=== PATIENT | female | born 1975 | race Caucasian/White ===

== ENCOUNTER 2019-11-09 20:46 | Emergency (ER) | payer MEDICAID ==
[~2019-11-09] VITALS: Ht 147.3 cm; Wt 40.8 kg
[2019-11-09 21:08] VITALS: BP_SYST 128
--- NOTE | 2019-11-09 21:08 | NUR ---
Placed in room 6 . Placed on environmental monitoring specialist, blood pressure machine and pulse oximeter. To gown for exam. Side rails up.
--- NOTE | 2019-11-09 21:10 | NUR ---
Pt presents to ER with friend with c/o nausea, vomiting and dizziness. Pt states she has been nauseous and vomiting for 2 days. Pt states she has been sober for three days. 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 Pt states she has body aches and rates the pain 5/10. Upon inspection pt has a 1 cm sutured laceration with 3 stitches. Pt states she wants sutures to be assessed. Pt states stitches were put in approximately 3 weeks ago. Will continue to monitor.
--- NOTE | 2019-11-09 21:34 | NUR ---
ER Dr. Morataya at bedside examining patient.
[2019-11-09] MEDS ORDERED: NACL 0.9% 1,000 ML IV ONE (21:41)
[2019-11-09] MEDS ORDERED: cloNIDine HCL 0.1 MG TABLET PO ONE (21:45)
[2019-11-09] MEDS ORDERED: PANTOPRAZOLE SODIUM 40 MG/VIAL (PROTONIX) IVP ONE (21:45)
[2019-11-09] MEDS ORDERED: ONDANSETRON HCL 4 MG/2 ML VIAL IVP ONE (21:45)
[2019-11-09] MEDS ORDERED: ALPRAZolam 0.25 MG TABLET PO ONE (21:45)
--- NOTE | 2019-11-09 22:05 | NUR ---
Removed 3 sutures from right eyebrow. No bleeding noted. Pt tolerated well.
[2019-11-09 22:10] LABS: BASOPHILS # (AUTO) 0.1 K/uL (0.0-0.2); BASOPHILS % (AUTO) 0.6 % (0.0-2.0); EOSINOPHILS % (AUTO) 0.2 % (0.0-4.0); HEMATOCRIT 46.1 % (36-48); HEMOGLOBIN 16.2 g/dL (12.0-16.0); LYMPHOCYTES # (AUTO) 1.7 K/uL (1.0-5.5); LYMPHOCYTES % (AUTO) 20.6 % (20.5-51.5); MEAN CORPUSCULAR HEMOGLOBIN 32 pg (27-31); MEAN CORPUSCULAR HGB CONC 35 % (32-36); MEAN CORPUSCULAR VOLUME 91 fL (79.0-98.0); MONOCYTES # (AUTO) 0.4 K/uL (0.0-1.0); NEUTROPHILS % (AUTO) 73.6 % (40.0-70.0); PLATELET COUNT (AUTO) 361 K/uL (130-430); RED BLOOD CELL COUNT(AUTO) 5.08 MIL/uL (4.2-6.2); RED CELL DISTRIBUTION WIDTH 12.7 % (9.0-15.0); WHITE BLOOD COUNT (AUTO) 8.2 K/uL (4.8-10.8)
[2019-11-09 22:14] LABS: BILIRUBIN,URINE 1+ (NEGATIVE); BLOOD, URINE NEGATIVE (NEGATIVE); CLARITY/URINE CLOUDY (CLEAR); COLOR,URINE YELLOW (YELLOW); GLUCOSE,URINE NEGATIVE (NEGATIVE); KETONES,URINE TRACE (NEGATIVE); LEUKOCYTE ESTERASE ,URINE TRACE (NEGATIVE); NITRITE, URINE NEGATIVE (NEGATIVE); PROTEIN URINE TRACE (NEGATIVE)
[2019-11-09 22:23] LABS: RBC,URINE 0-3 /HPF (0-3)
[2019-11-09 22:24] LABS: BACTERIA,URINE MODERATE /HPF (None Seen)
[2019-11-09 22:25] LABS: CALCIUM 8.6 mg/dL (8.4-11.0); CREATININE 0.76 mg/dL (0.55-1.30); POTASSIUM 3.7 mmol/L (3.5-5.1)
[2019-11-09 22:28] LABS: CANNABINOID, URINE POSITIVE (NEG <=50); METHAMPHETAMINES SCREEN,URINE POSITIVE (NEG <=500); OPIATE, URINE POSITIVE (NEG <=100)
[2019-11-09 22:29] LABS: BARBITURATE, URINE NEGATIVE (NEG <=200); BENZODIAZEPINE, URINE POSITIVE (NEG <=150); COCAINE, URINE NEGATIVE (NEG <=150); PHENCYCLIDINE SCREEN,URINE NEGATIVE (NEG <=25); UR TRICYCLIC ANTIDEPRESSANTS NEGATIVE (NEG <=300); URINE AMPHETAMINE POSITIVE (NEG <=500); URINE METHADONE NEGATIVE (NEG <=200); URINE OXYCODONE SCREEN NEGATIVE (NEG <=100); URINE PROPOXYPHENE SCREEN NEGATIVE (NEG <=300)
[2019-11-09 22:30] LABS: ALBUMIN 4.4 g/dL (3.4-4.8); TOTAL BILIRUBIN 0.5 mg/dL (0.0-1.0)
--- NOTE | 2019-11-09 23:15 | NUR ---
Patient resting comfortably in bed. No acute distress, will continue to monitor.
[2019-11-10 00:13] VITALS: BP_SYST 121
--- NOTE | 2019-11-10 00:13 | NUR ---
Patient given written and verbal discharge instructions and verbalizes understanding. ER MD discussed with patient the results and treatment provided. Patient in stable condition. ID arm band removed. IV catheter removed intact and dressing applied, no active bleeding. Rx of Xanax, Clonidine, and Zofran given. Patient educated on pain management and to follow up with PMD. Pain Scale 0. Opportunity for questions provided and answered. Medication side effect fact sheet provided.
== END 2019-11-10 00:13 | disposition home or self-care (01) ==
LOC: SED 20:46
DX: F11.23 Opioid dependence with withdrawal (principal); F15.23 Other stimulant dependence with withdrawal; F17.200 Nicotine dependence, unspecified, uncomplicated; F10.239 Alcohol dependence with withdrawal, unspecified; R11.2 Nausea with vomiting, unspecified; R42 Dizziness and giddiness
CPT/HCPCS: 36415; 80053; 80307; 81000; 85025; 87086; 93005; 96361; 96374; 96375; 99284; C9113; J2405; J7030

== ENCOUNTER 2021-03-11 12:44 | Emergency (ER) | payer MEDICAID ==
[~2021-03-11] VITALS: Ht 147.3 cm; Wt 37.6 kg
[2021-03-11 12:48] VITALS: BP_SYST 129
--- NOTE | 2021-03-11 12:54 | NUR ---
Patient to ER bed 5 to gown for evaluation. Side rails up. Report given to GERRY Mendoza.
--- NOTE | 2021-03-11 12:55 | NUR ---
Patient presented to ER C/O ankle pain. Patient BIB friend via wheelchair A&Ox4, afebrile, left ankle swelling, cap refill 2 sec, distal pulses present, pain 8/10. Patient states she fell, injured left ankle Friday, 5 days ago. PT denies hitting head at time of fall
[2021-03-11] MEDS ORDERED: KETOROLAC TROMETHAMINE 60 MG/2 ML VIAL IM ONE (13:00)
--- NOTE | 2021-03-11 13:15 | NUR ---
Urine specimen collected and analyzed in ER. Results given to ER .
[2021-03-11 13:48] LABS: BASOPHILS # (AUTO) 0.1 K/uL (0.0-0.2); EOSINOPHILS # (AUTO) 0.1 K/uL (0.0-0.4); EOSINOPHILS % (AUTO) 2.3 % (0.0-4.0); HEMATOCRIT 39.1 % (36-48); HEMOGLOBIN 13.4 g/dL (12.0-16.0); LYMPHOCYTES # (AUTO) 2.3 K/uL (1.0-5.5); LYMPHOCYTES % (AUTO) 39.8 % (20.5-51.5); MEAN CORPUSCULAR HEMOGLOBIN 31 pg (27-31); MEAN CORPUSCULAR HGB CONC 34 % (32-36); MEAN CORPUSCULAR VOLUME 92 fL (79.0-98.0); MONOCYTES # (AUTO) 0.3 K/uL (0.0-1.0); MONOCYTES % (AUTO) 5.1 % (1.7-9.3); NEUTROPHILS % (AUTO) 51.8 % (40.0-70.0); PLATELET COUNT (AUTO) 203 K/uL (130-430); RED BLOOD CELL COUNT(AUTO) 4.28 MIL/uL (4.2-6.2); RED CELL DISTRIBUTION WIDTH 12.9 % (9.0-15.0); WHITE BLOOD COUNT (AUTO) 5.7 K/uL (4.8-10.8)
[2021-03-11 13:54] LABS: ANION GAP 8 (5-15); CALCIUM 8.6 mg/dL (8.4-11.0); CHLORIDE 104 mmol/L (98-107); CREATININE 0.87 mg/dL (0.55-1.30); GLUCOSE 90 mg/dL (70-99); POTASSIUM 3.8 mmol/L (3.5-5.1); SODIUM SERUM 141 mmol/L (136-145); UREA NITROGEN, BLOOD 13 mg/dL (8-21)
[2021-03-11 13:55] LABS: BARBITURATE, URINE NEGATIVE (NEG <=200); BENZODIAZEPINE, URINE POSITIVE (NEG <=150); METHAMPHETAMINES SCREEN,URINE POSITIVE (NEG <=500); URINE AMPHETAMINE POSITIVE (NEG <=500); URINE METHADONE NEGATIVE (NEG <=200)
[2021-03-11 13:55] LABS: GFR AFRICAN AMERICAN 91 mL/min (>90)
[2021-03-11 13:56] LABS: CANNABINOID, URINE NEGATIVE (NEG <=50); COCAINE, URINE NEGATIVE (NEG <=150); OPIATE, URINE POSITIVE (NEG <=100); PHENCYCLIDINE SCREEN,URINE NEGATIVE (NEG <=25); UR TRICYCLIC ANTIDEPRESSANTS NEGATIVE (NEG <=300); URINE OXYCODONE SCREEN NEGATIVE (NEG <=100); URINE PROPOXYPHENE SCREEN NEGATIVE (NEG <=300)
[2021-03-11 13:59] LABS: ALANINE AMINOTRANSFERASE 35 U/L (12-78); ALBUMIN 3.6 g/dL (3.4-4.8); ASPARTATE AMINOTRANSFERASE 19 U/L (10-37); TOTAL BILIRUBIN 0.5 mg/dL (0.0-1.0)
[2021-03-11 14:03] LABS: C-REACTIVE PROTEIN QUANT < 0.2 mg/dL (0-0.5)
[2021-03-11] MEDS ORDERED: IBUP-1969 PO (14:45)
[2021-03-11] MEDS ORDERED: HYDR-3919 PO (14:45)
[2021-03-11 14:54] LABS: ERYTHROCYTE SEDIMENTATION RATE 5 MM/HR (0-20)
--- NOTE | 2021-03-11 15:10 | NUR ---
Crutches properly fitted for patient by Kelly RN & Nadeem EMT. Patient given crutch walking instructions and demonstration. Is able to demonstrate adequate crutch walking technique with crutches provided. unsteady with crutches, will discharge with wheelchair assistance.
[2021-03-11 15:25] VITALS: BP_SYST 128
--- NOTE | 2021-03-11 15:25 | NUR ---
Patient given written and verbal discharge instructions and verbalizes understanding. ER MD discussed with patient the results and treatment provided. Patient in stable condition. ID arm band removed. IV catheter removed intact and dressing applied, no active bleeding. Rx of norco & motrin given. Patient educated on pain management and to follow up with PMD. Pain Scale3/10 . Opportunity for questions provided and answered. Medication side effect fact sheet provided.
== END 2021-03-11 15:25 | disposition home or self-care (01) ==
LOC: SED 12:44
DX: S93.492A Sprain of other ligament of left ankle, initial encounter (principal); S93.602A Unspecified sprain of left foot, initial encounter; R51.9 Headache, unspecified; W18.39XA Other fall on same level, initial encounter; Y93.89 Activity, other specified; Y92.89 Other specified places as the place of occurrence of the external cause; Y99.8 Other external cause status
CPT/HCPCS: 36415; 70450; 73610; 73630; 76376; 80053; 80307; 81025; 85025; 85610; 85651; 85730; 86140; 96372; 99285; J1885

== ENCOUNTER 2021-08-25 16:25 | Emergency (ER) | payer MEDICAID, SELFPAY ==
[~2021-08-25] VITALS: Ht 147.3 cm; Wt 35.4 kg
[2021-08-25 16:25] VITALS: BP_SYST 138
[~2021-08-25 16:25] MED LIST: ALPR1TAB2 PO; HYDR-3919 PO; IBUP-1969 PO
--- NOTE | 2021-08-25 16:25 | NUR ---
Placed in room 06 . Placed on nuclear monitoring technician, blood pressure machine and pulse oximeter. To gown for exam. Side rails up. Report given to GERRY Andrade
--- NOTE | 2021-08-25 17:05 | NUR ---
HX OF [place] AND WEARING HEARING AIDS. C/O BILATERAL FLANK PAIN WITH DYSURIA RECENT DISCHARGED FROM HOSPITAL
--- NOTE | 2021-08-25 17:09 | NUR ---
DR WOODY IN TO ASSESS
[2021-08-25] MEDS ORDERED: NACL 0.9% 1,000 ML IV ONE ×2 (17:15→18:15)
[2021-08-25] MEDS ORDERED: KETOROLAC TROMETHAMINE 30 MG VIAL IVP ONE (17:15)
[2021-08-25] MEDS ORDERED: LORazepam 2 MG/ML VIAL IVP ONE (17:15)
[2021-08-25 18:00] LABS: BASOPHILS # (AUTO) 0.1 K/uL (0.0-0.2); BASOPHILS % (AUTO) 0.5 % (0.0-2.0); EOSINOPHILS % (AUTO) 0.1 % (0.0-4.0); HEMATOCRIT 40.3 % (36-48); HEMOGLOBIN 14.3 g/dL (12.0-16.0); LYMPHOCYTES # (AUTO) 2.4 K/uL (1.0-5.5); LYMPHOCYTES % (AUTO) 18.6 % (20.5-51.5); MEAN CORPUSCULAR HEMOGLOBIN 32 pg (27-31); MEAN CORPUSCULAR HGB CONC 36 % (32-36); MEAN CORPUSCULAR VOLUME 91 fL (79.0-98.0); MONOCYTES # (AUTO) 0.8 K/uL (0.0-1.0); MONOCYTES % (AUTO) 6.4 % (1.7-9.3); NEUTROPHILS # (AUTO) 9.5 K/uL (1.8-7.7); NEUTROPHILS % (AUTO) 74.4 % (40.0-70.0); PLATELET COUNT (AUTO) 264 K/uL (130-430); RED BLOOD CELL COUNT(AUTO) 4.41 MIL/uL (4.2-6.2); RED CELL DISTRIBUTION WIDTH 13.6 % (9.0-15.0); WHITE BLOOD COUNT (AUTO) 12.8 K/uL (4.8-10.8)
--- NOTE | 2021-08-25 18:00 | NUR ---
DR WOODY AT BEDSIDE
[2021-08-25 18:01] LABS: CALCIUM 9.1 mg/dL (8.4-11.0); CREATININE 0.9 mg/dL (0.55-1.30); POTASSIUM 3.6 mmol/L (3.5-5.1)
--- NOTE | 2021-08-25 18:05 | NUR ---
SLEEPING, EASILY AROUSED, RESP UNLABORED, SKIN WARM AND DRY. SR ON MONITOR. IV HL 18 GUAGE RT AC, SITE PATENT
[2021-08-25 18:07] LABS: ALBUMIN 3.7 g/dL (3.4-4.8); TOTAL BILIRUBIN 0.5 mg/dL (0.0-1.0)
[2021-08-25 18:17] LABS: BILIRUBIN,URINE NEGATIVE (NEGATIVE); BLOOD, URINE NEGATIVE (NEGATIVE); CLARITY/URINE CLOUDY (CLEAR); COLOR,URINE YELLOW (YELLOW); GLUCOSE,URINE NEGATIVE (NEGATIVE); KETONES,URINE TRACE (NEGATIVE); LEUKOCYTE ESTERASE ,URINE NEGATIVE (NEGATIVE); NITRITE, URINE NEGATIVE (NEGATIVE); PH,URINE 5.5 (5.0-8.0); PROTEIN URINE 1+ (NEGATIVE); UROBILINOGEN,URINE 0.2 (0.2-1.0)
[2021-08-25 18:24] LABS: BACTERIA,URINE FEW /HPF (None Seen); RBC,URINE 0-3 /HPF (0-3); WBC,URINE 0-3 /HPF (0-3)
[2021-08-25 18:25] LABS: MUCUS,URINE None Seen /LPF (None Seen)
[2021-08-25] MEDS ORDERED: NAPR-1172 PO (18:32)
[2021-08-25 18:55] VITALS: BP_SYST 128
--- NOTE | 2021-08-25 18:57 | NUR ---
Patient given written and verbal discharge instructions and verbalizes understanding. ER MD discussed with patient the results and treatment provided. Patient in stable condition. ID arm band removed. IV catheter removed intact and dressing applied, no active bleeding. Rx given. Patient educated on pain management and to follow up with PMD. Pain Scale 0/10. Opportunity for questions provided and answered. Medication side effect fact sheet provided.
== END 2021-08-25 18:57 | disposition home or self-care (01) ==
LOC: SED 16:25
DX: S33.5XXA Sprain of ligaments of lumbar spine, initial encounter (principal); F41.9 Anxiety disorder, unspecified; Z79.899 Other long term (current) drug therapy; X50.9XXA Other and unspecified overexertion or strenuous movements or postures, initial encounter; Y93.89 Activity, other specified; Y92.89 Other specified places as the place of occurrence of the external cause; Y99.8 Other external cause status
CPT/HCPCS: 36415; 80053; 81000; 81025; 83605; 85025; 87040; 96361; 96374; 96375; 99284; J1885; J2060; J7030

== ENCOUNTER 2021-12-15 17:00 | Emergency (ER) | payer MEDICAID, SELFPAY ==
[~2021-12-15] VITALS: Ht 149.9 cm; Wt 40.8 kg
[~2021-12-15 17:00] MED LIST changes: +NAPR-1172 PO
[2021-12-15 19:10] VITALS: BP_SYST 131
--- NOTE | 2021-12-15 19:10 | NUR ---
Patient triaged and placed in waiting room. VSS and patient appears in no acute distress at this time. Accompanied by FRIEND, awaiting available bed, and MD notified of need for MSE.
--- NOTE | 2021-12-15 22:01 | NUR ---
Per land leasing information clerk, pt LWBS.
== END 2021-12-15 22:01 | disposition left against medical advice (07) ==
LOC: SED 17:00
DX: R52 Pain, unspecified (principal); Z53.21 Procedure and treatment not carried out due to patient leaving prior to being seen by health care provider

== ENCOUNTER 2022-08-21 22:01 | Emergency (ER) | payer MEDICAID ==
[~2022-08-21] VITALS: Ht 147.3 cm; Wt 43.5 kg
[2022-08-21 22:10] VITALS: BP_SYST 124
--- NOTE | 2022-08-21 22:17 | NUR ---
Patient triaged and placed in waiting room. VSS and patient appears in no acute distress at this time. Accompanied by caregiver, awaiting available bed, and MD notified of need for MSE.
[2022-08-21] MEDS ORDERED: MAG HYDROX/AL HYDROX/SIMETH 30 ML, DICYCLOMINE HCL 20 MG, LIDOCAINE VISCOUS 2% 15ML (PO... PO ONE ×3 (23:30)
[2022-08-21 23:40] LABS: BASOPHILS % (AUTO) 0.7 % (0.0-2.0); EOSINOPHILS # (AUTO) 0.1 K/uL (0.0-0.4); EOSINOPHILS % (AUTO) 2.4 % (0.0-4.0); HEMATOCRIT 36.1 % (36-48); LYMPHOCYTES # (AUTO) 1.7 K/uL (1.0-5.5); LYMPHOCYTES % (AUTO) 38.9 % (20.5-51.5); MEAN CORPUSCULAR VOLUME 89 fL (79.0-98.0); MONOCYTES # (AUTO) 0.4 K/uL (0.0-1.0); MONOCYTES % (AUTO) 10.3 % (1.7-9.3); NEUTROPHILS # (AUTO) 2.1 K/uL (1.8-7.7); NEUTROPHILS % (AUTO) 47.7 % (40.0-70.0); PLATELET COUNT (AUTO) 198 K/uL (130-430); RED BLOOD CELL COUNT(AUTO) 4.05 MIL/uL (4.2-6.2); RED CELL DISTRIBUTION WIDTH 12.5 % (9.0-15.0); WHITE BLOOD COUNT (AUTO) 4.3 K/uL (4.8-10.8)
[2022-08-22 00:05] LABS: CALCIUM 8.6 mg/dL (8.4-11.0); CREATININE 0.92 mg/dL (0.55-1.30)
[2022-08-22 00:11] LABS: ALBUMIN 3.2 g/dL (3.4-4.8); TOTAL BILIRUBIN 0.2 mg/dL (0.0-1.0)
[2022-08-22 00:19] LABS: BILIRUBIN,URINE NEGATIVE (NEGATIVE); BLOOD, URINE NEGATIVE (NEGATIVE); COLOR,URINE YELLOW (YELLOW); GLUCOSE,URINE NEGATIVE (NEGATIVE); KETONES,URINE NEGATIVE (NEGATIVE); LEUKOCYTE ESTERASE ,URINE NEGATIVE (NEGATIVE); NITRITE, URINE NEGATIVE (NEGATIVE); PROTEIN URINE NEGATIVE (NEGATIVE); UROBILINOGEN,URINE 0.2 (0.2-1.0)
[2022-08-22 00:20] LABS: CLARITY/URINE CLEAR (CLEAR)
[2022-08-22] MEDS ORDERED: MOM PO (01:36)
[2022-08-22] MEDS ORDERED: IBUP-1969 PO (01:36)
--- NOTE | 2022-08-22 02:58 | NUR ---
Patient given written and verbal discharge instructions and verbalizes understanding. ER MD discussed with patient the results and treatment provided. Patient in stable condition. ID arm band removed. Rx of MILK OF MAGNESIUM, MOTRIN given. Patient educated on pain management and to follow up with PMD. Pain Scale 0/10. Opportunity for questions provided and answered. Medication side effect fact sheet provided.
[2022-08-22 03:03] VITALS: BP_SYST 118
== END 2022-08-22 02:59 | disposition home or self-care (01) ==
LOC: SED 22:01
DX: K59.00 Constipation, unspecified (principal); R10.9 Unspecified abdominal pain; Z79.899 Other long term (current) drug therapy
CPT/HCPCS: 99284; 74176; 80053; 84703; 85025; 36415; 76376; 81025; 81003; J2001